=== PATIENT | male | born 1980 | race Caucasian/White ===

== ENCOUNTER 2020-09-29 22:00 | Emergency (ER) | payer OTHER ==
[2020-09-29] MEDS ORDERED: Lidocaine 1% (PF) 30 ML VIAL ONE (22:12)
[2020-09-29] MEDS ORDERED: Sulfameth/Trimethoprim DS 800-160mg TAB ONE (22:49)
== END 2020-09-29 23:02 | disposition home or self-care (01) ==
LOC: NAV ERS 22:00
DX: L02.413 Cutaneous abscess of right upper limb (principal); F17.210 Nicotine dependence, cigarettes, uncomplicated
CPT/HCPCS: 87070; 87077; 87205; 99283; J2001